=== PATIENT | female | born 1995 | race African-American/Black ===

== ENCOUNTER 2017-10-26 13:39 | Emergency (ER) | payer MEDICAID, OTHER ==
--- NOTE | 2017-10-26 14:29 | ER Document Report ---
ED Medical Screen (RME) - General Chief Complaint: Abdominal Cramping Stated Complaint: ABDOMINAL PAIN Time Seen by Provider: 10/26/17 14:26 Notes: 22-year-old female patient reports she is 9 weeks by history. She had an ultrasound at 7 weeks 1 day in the office. She has pelvic cramping that started about 11 AM this morning without bleeding. No frequency or dysuria. I have greeted and performed a rapid initial assessment of this patient. A comprehensive ED assessment and evaluation of the patient, analysis of test results and completion of the medical decision making process will be conducted by additional ED providers. TRAVEL OUTSIDE OF THE [place] IN LAST 30 DAYS: No - Related Data Allergies/Adverse Reactions: No Known Allergies Allergy (Verified 10/26/17 13:42) Past Medical History - Social History Chew tobacco use (# tins/day): No Frequency of alcohol use: None Drug Abuse: None Renal/ Medical History: Denies: Hx Peritoneal Dialysis - Immunizations Immunizations up to date: Yes Hx Diphtheria, Pertussis, Tetanus Vaccination: Yes - 2007 Physical Exam - Vital signs Vitals: Temp Pulse Resp BP Pulse Ox 98.7 F 82 16 105/86 H 100 10/26/17 13:44 10/26/17 13:44 10/26/17 13:44 10/26/17 13:44 10/26/17 13:44 Course - Vital Signs Vital signs: Temp Pulse Resp BP Pulse Ox 98.7 F 82 16 105/86 H 100 10/26/17 13:44 10/26/17 13:44 10/26/17 13:44 10/26/17 13:44 10/26/17 13:44
[2017-10-26 15:21] LABS: APPEARANCE,URINE SLIGHTLY-CLOUDY; BILIRUBIN,URINE NEGATIVE (NEGATIVE); COLOR,URINE YELLOW; GLUCOSE, URINE NEGATIVE (NEGATIVE); KETONES,URINE NEGATIVE (NEGATIVE); LEUKOCYTE ESTERASE,URINE NEGATIVE (NEGATIVE); NITRITE,URINE POSITIVE (NEGATIVE); PROTEIN,URINE 30 mg/dL (NEGATIVE); URINE SPECIFIC GRAVITY 1.017
[2017-10-26] MEDS ORDERED: PYRIDOXINE HCL 50 MG TABLET PO ONE (15:26)
--- NOTE | 2017-10-26 15:26 | ER Document Report ---
ED GI/ - General Chief Complaint: Abdominal Cramping Stated Complaint: ABDOMINAL PAIN Time Seen by Provider: 10/26/17 14:26 Mode of Arrival: Ambulatory Information source: Patient Notes: 22-year-old female presents to ED for complaint of pelvic cramping she is 9 weeks by history. She states she was seen at [facility] 2 weeks ago and had an ultrasound that showed a viable in the uterus. She states she started cramping about 11:00 this morning no vaginal discharge no bleeding. TRAVEL OUTSIDE OF THE [place] IN LAST 30 DAYS: No - HPI Patient complains to provider of: Pelvic pain, Onset: This morning Timing/Duration: Gradual Quality of pain: Cramping Severity at maximum: Moderate Severity in ED: Moderate Pain Level: 3 Location: Pelvis Vaginal bleeding (Compared to normal period): None Menstrual period history: LMP: 9 weeks : 2 Para: 1 OB ultrasound done: Yes vitamins taken: Yes Associated symptoms: Other - Pelvic cramping Exacerbated by: Movement Relieved by: Denies Similar symptoms previously: Yes Recently seen / treated by doctor: Yes - Related Data Allergies/Adverse Reactions: No Known Allergies Allergy (Verified 10/26/17 13:42) Past Medical History - General Information source: Patient - Social History Smoking Status: Never Smoker Cigarette use (# per day): No Chew tobacco use (# tins/day): No Smoking Education Provided: No Frequency of alcohol use: None Drug Abuse: None Lives with: Family Family History: Reviewed & Not Pertinent Patient has suicidal ideation: No Patient has homicidal ideation: No - Past Medical History Cardiac Medical History: Reports: None Pulmonary Medical History: Reports: None EENT Medical History: Reports: None Neurological Medical History: Reports: None Endocrine Medical History: Reports: None Renal/ Medical History: Reports: None Malignancy Medical History: Reports: None GI Medical History: Reports: None Musculoskeltal Medical History: Reports None Skin Medical History: Reports None Psychiatric Medical History: Reports: None Traumatic Medical History: Reports: None Infectious Medical History: Reports: None Surgical Hx: Negative Past Surgical History: Reports: None - Immunizations Immunizations up to date: Yes Hx Diphtheria, Pertussis, Tetanus Vaccination: Yes - 2007 Review of Systems - Review of Systems Constitutional: Recent illness. denies: Fever EENT: Nose congestion, Nose discharge, Sinus pressure, Sinus discharge Cardiovascular: No symptoms reported Respiratory: Cough Gastrointestinal: No symptoms reported Genitourinary: No symptoms reported Female Genitourinary: No symptoms reported Musculoskeletal: No symptoms reported Skin: No symptoms reported Hematologic/Lymphatic: No symptoms reported Neurological/Psychological: Headaches -: Yes All other systems reviewed and negative Physical Exam - Vital signs Vitals: Temp Pulse Resp BP Pulse Ox 98.7 F 82 16 105/86 H 100 10/26/17 13:44 10/26/17 13:44 10/26/17 13:44 10/26/17 13:44 10/26/17 13:44 Interpretation: Normal - General General appearance: Appears well, Alert - HEENT Head: Normocephalic, Atraumatic Eyes: Normal Pupils: PERRL Ears: Normal External canal: Normal Tympanic membrane: Normal Sinus: Normal Nasal: Normal Mouth/Lips: Normal Mucous membranes: Normal Pharynx: Normal Neck: Normal - Respiratory Respiratory status: No respiratory distress - Pelvic area Chest status: Nontender Breath sounds: Normal Chest palpation: Normal - Cardiovascular Rhythm: Regular Heart sounds: Normal auscultation Murmur: No - Abdominal Inspection: Normal Distension: No distension Bowel sounds: Normal Tenderness: Tender Organomegaly: No organomegaly - Back Back: Normal, Nontender - Extremities General upper extremity: Normal inspection, Nontender, Normal color, Normal ROM , Normal temperature General lower extremity: Normal inspection, Nontender, Normal color, Normal ROM , Normal temperature, Normal weight bearing. No: Agata's sign - Neurological Neuro grossly intact: Yes Cognition: Normal Orientation: AAOx4 Valentino Coma Scale Eye Opening: Spontaneous [place] Coma Scale Verbal: Oriented Valentino Coma Scale Motor: Obeys Commands [place] Coma Scale Total: 15 Speech: Normal Motor strength normal: LUE, RUE, LLE, RLE Sensory: Normal - Psychological Associated symptoms: Normal affect, Normal mood - Skin Skin Temperature: Warm Skin Moisture: Dry Skin Color: Normal Course - Re-evaluation Re-evalutation: 10/26/17 21:30 Patient was diagnosed with a urinary tract infection. She was treated with vitamin B6 for her nausea and Keflex for her UTI. Patient was encouraged to increase her fluids given instructions on vitamin B6 and inessa for her nausea. Patient to follow-up with her primary doctor and her [facility]. - Vital Signs Vital signs: Temp Pulse Resp BP Pulse Ox 98.7 F 66 16 108/54 L 100 10/26/17 15:45 10/26/17 15:45 10/26/17 15:45 10/26/17 15:45 10/26/17 15:45 - Laboratory Laboratory results interpreted by me: 10/26/17 14:16 Urine Protein 30 H Urine Nitrite POSITIVE H Urine Urobilinogen 2.0 H Discharge - Discharge Clinical Impression: Pelvic pain affecting in first trimester, antepartum UTI (urinary tract infection) during Qualifiers: Trimester: first trimester Qualified Code(s): O23.41 - Unspecified infection of urinary tract in , first trimester Condition: Stable Disposition: HOME, SELF-CARE Additional Instructions: URINARY TRACT INFECTION: Your evaluation indicates that you have a urinary tract infection. This is due to germs growing in the bladder. This is a common problem. This infection usually responds quickly to antibiotics. Your antibiotic should be taken exactly as prescribed. Drink plenty of fluids -- three to four quarts a day. Occasionally, a bladder anesthetic will be prescribed to help stop the feeling of urgency until the antibiotic has a chance to clear the infection. This may cause your urine to be dark orange. Certain urine infections require a culture. If the doctor obtained a culture, the results will be back in two days. You should call to see if a change in treatment is needed. A repeat urinalysis after you finish treatment is often recommended. The physician will let you know if further testing is required. Call the doctor if you develop fever, chills, flank pain, inability to urinate, or blood in the urine. CEPHALEXIN: The antibiotic you've been prescribed is a member of the cephalosporin class. This type of antibiotic covers a wide variety of infections, including those of the skin, lungs, and urinary tract. It's useful for staph infections. This antibiotic is slightly similar to the penicillin family. In rare cases , a person who is allergic to penicillin will also be allergic to this medication. If you have had a severe allergic reaction to penicillin, and have not taken this antibiotic since that time, notify your doctor. Antibiotics which cover many germs ("broad spectrum" antibiotics) are more likely to cause diarrhea or "yeast" infections. Women prone to vaginal yeast problems may suffer an attack after taking this antibiotic. In infants, oral thrush (white spots "stuck" on the cheek) or yeast diaper rash may result. See your doctor if these problems occur. Call at once if you develop itching, hives , shortness of breath, or lightheadedness. Acetaminophen Acetaminophen may be taken for pain relief or fever control. It's much safer than aspirin, offering a wider range of "safe" dosages. It is safe during . Some brand names are Tylenol, Panadol, Datril, Anacin 3, Tempra, and Liquiprin. Acetaminophen can be repeated every four hours. The following are maximum recommended dosages: WEIGHT Dose Drops Elixir Chewable( 80mg) (LBS.) drprs=droppers tsp=teaspoon 6 40 mg .4 ml (1/2) 6-11 80 mg .8 ml (full) 1/2 tsp 1 tab 12-16 120 mg 1 1/2 drprs 3/4 tsp 1 1/2 tabs 17-23 160 mg 2 drprs 1 tsp 2 tabs 24-30 240 mg 3 drprs 1 1/2 tsp 3 tabs 30-35 320 mg 2 tsp 4 tabs 36-41 360 mg 2 1/4 tsp 4 1 /2 tabs 42-47 400 mg 2 1/2 tsp 5 tabs 48-53 480 mg 3 tsp 6 tabs 54-59 520 mg 3 1/4 tsp 6 1 /2 tabs 60-64 560 mg 3 1/2 tsp 7 tabs 65-70 600 mg 3 3/4 tsp 7 1 /2 tabs 71-76 640 mg 4 tsp 8 tabs 77-82 720 mg 4 1/2 tsp 9 tabs 83-88 800 mg 5 tsp 10 tabs >89 pounds or adults 650 mg to 900 mg Acetaminophen can be repeated every four hours. Maximum daily dose not to exceed 4000 mg. These maximum recommended dosages are slightly higher than the dosages written on the product container, but these dosages are very safe and well below the toxic dosage for acetaminophen. Vitamin B6 for your nausea during . You can also use inessa ralph or inessa snaps they also help with the nausea. Call your [facility] today or tomorrow and let them know that she do have a UTI and have been treated with Keflex and see if they have any other recommendations for your nausea. FOLLOW-UP CARE: If you have been referred to a physician for follow-up care, call the physician s office for an appointment as you were instructed or within the next two days. If you experience worsening or a significant change in your symptoms, notify the physician immediately or return to the Emergency Department at any time for re-evaluation. Prescriptions: Cephalexin Monohydrate [Keflex 500 mg Capsule] 500 mg PO Q6H 10 Days capsule Forms: Elevated Blood Pressure, Return to Work Referrals: [facility] [Provider Group] - Follow up as needed
[2017-10-26] MEDS ORDERED: CEPHALEXIN 500 MG CAPSULE PO ONE (15:31)
[2017-10-26 15:47] VITALS: BP 108/54
== END 2017-10-26 15:53 | disposition home or self-care (01) ==
LOC: ER 13:39
DX: O23.41 Unspecified infection of urinary tract in pregnancy, first trimester (principal); O26.891 Other specified pregnancy related conditions, first trimester; R10.2 Pelvic and perineal pain; Z3A.09 9 weeks gestation of pregnancy
CPT/HCPCS: 99284; 87086; 87088; 81001; 87186; J3490

== ENCOUNTER 2017-11-29 08:00 | Emergency (ER) | payer OTHER ==
[2017-11-29] MEDS ORDERED: ONDANSETRON HCL INJ/PF 4 MG/2 ML SDV IV ONE (08:26)
[2017-11-29] MEDS ORDERED: NORMAL SALINE 1000 ML 1,000 ML IV ONE (08:26)
--- NOTE | 2017-11-29 08:26 | ER Document Report ---
ED General - General Chief Complaint: Nausea/Vomiting Stated Complaint: NAUSEA, VOMITING Time Seen by Provider: 11/29/17 08:19 Notes: Patient is a 14 week 22-year-old female who presents emergency department with a chief complaint of nausea and vomiting. Patient states that she has been going through [employer] and was previous and likely just but she cannot afford the prescription due to cost. She states that she has been trying Unisom and B6 but has not had much improvement. She states that she has had difficulty tolerating p.o. for the past 4 days. She denies any coffee- ground emesis, bright red blood. She admits normal urine output and normal bowel movements. Otherwise healthy female. Denies any abdominal pain. She denies any significant pelvic cramping, vaginal bleeding or vaginal discharge TRAVEL OUTSIDE OF THE [place] IN LAST 30 DAYS: No - Related Data Allergies/Adverse Reactions: No Known Allergies Allergy (Verified 11/29/17 08:03) Past Medical History - Social History Smoking Status: Never Smoker Family History: Reviewed & Not Pertinent Renal/ Medical History: Denies: Hx Peritoneal Dialysis - Immunizations Immunizations up to date: Yes Hx Diphtheria, Pertussis, Tetanus Vaccination: Yes - 2007 Review of Systems - Review of Systems Constitutional: No symptoms reported Cardiovascular: No symptoms reported Respiratory: No symptoms reported Gastrointestinal: See HPI Genitourinary: See HPI Female Genitourinary: No symptoms reported -: Yes All other systems reviewed and negative Physical Exam - Vital signs Vitals: Temp Pulse Resp BP Pulse Ox 98.2 F 106 H 16 120/77 98 11/29/17 08:02 11/29/17 08:02 11/29/17 08:02 11/29/17 08:02 11/29/17 08:02 - Notes Notes: PHYSICAL EXAM GENERAL: Alert, interacts well. HEAD: Normocephalic, atraumatic. EYES: Pupils equal, round, and reactive to light. Extraocular movements intact. ENT: Oral mucosa moist, tongue midline. NECK: Full range of motion. Supple. Trachea midline. LUNGS: Clear to auscultation bilaterally, no wheezes, rales, or rhonchi. No respiratory distress. HEART: Regular rate and rhythm. No murmurs, gallops, or rubs. ABDOMEN: Soft, nondistended, nontender. No guarding, rebound, or rigidity.. Bowel sounds present in all 4 quadrants. EXTREMITIES: Moves all 4 extremities spontaneously. No edema, radial and dorsalis pedis pulses 2/4 bilaterally. No cyanosis. NEUROLOGICAL: Alert and oriented x4. Normal speech. PSYCH: Normal affect, normal mood. SKIN: Warm, dry, normal turgor. No rashes or lesions noted. Course - Re-evaluation Re-evalutation: 11/29/17 10:24 Patient is a 22-year-old female is hemodynamically stable, no acute distress and afebrile. Patient presents with hyperemesis gravidarum. Patient able to tolerate p.o. fluids after IV Zofran. Patient did receive IV fluids for dehydration. Urinalysis with evidence 80 ketones. Chemistry stable without any evidence of acute renal failure. Patient is afebrile without evidence of tachycardia. No evidence of leukocytosis. Patient stable for discharge home given strict return precautions and stable follow-up with [facility]. - Vital Signs Vital signs: Temp Pulse Resp BP Pulse Ox 98.2 F 106 H 16 120/77 98 11/29/17 08:02 11/29/17 08:02 11/29/17 08:02 11/29/17 08:02 11/29/17 08:02 - Laboratory Result Diagrams: 11/29/17 08:47 11/29/17 08:47 Laboratory results interpreted by me: 11/29/17 11/29/17 11/29/17 08:35 08:47 08:47 WBC 10.6 H RDW 14.3 H Seg Neuts % (Manual) 89 H Lymphocytes % (Manual) 5 L Abs Neuts (Manual) 9.4 H Beta HCG, Quant 65739.00 H Urine Protein 100 H Urine Ketones 80 H Urine Blood SMALL H Urine Urobilinogen 4.0 H Discharge - Discharge Clinical Impression: Hyperemesis, Condition: Good Disposition: HOME, SELF-CARE Additional Instructions: VOMITING: Vomiting (or nausea without vomiting) can be caused by many other different problems. It can mean that something's wrong with the stomach, such as ulcers or inflammation or the intestinal tract, such as appendicitis. But it can also be a symptom of a problem that has nothing to do with the stomach or intestines. Vomiting is common with severe headaches, earaches, tonsillitis, and kidney infections, etc. We see it with pneumonia or heart attacks. Drugs can cause nausea and vomiting. Many abdominal problems cause vomiting; for example, gallstones, kidney stones, pancreatitis, and intestinal obstruction ( blocked bowels). In most cases, curing the vomiting depends on fixing the problem that caused it. For temporary relief, we may use an anti-nausea medicine. For home use, we can prescribe suppositories, chewable pills, pills that dissolve in the mouth, or liquid anti-nausea drugs. If the vomiting seems to be caused by a problem in the stomach, acid-suppressing drugs may be prescribed as well. It's important to avoid dehydration. Sip small amounts of clear liquids ( soft drinks, tea, broth, etc) . Try to take fluids frequently even if you are vomiting to prevent dehydration. Take increasing amounts of fluid and when liquids are being consumed successfully, advance to small amounts of bland food (toast, soups, mashed potatoes, etc.) until you are able to resume a regular diet. Avoid aspirin, tobacco, and alcohol. If the vomiting worsens, if the problem that's making you vomit worsens, or if there's evidence of bleeding in the stomach (such as black, tarry stool, or bloody or black vomit), you should return immediately. Also, return if abdominal pain worsens or becomes localized to one area or you develop high fever. Call your doctor if you aren't improved in 24 hours. INTRAVENOUS (I V) FLUIDS: As part of your care today, you received intravenous (IV) fluids. IV fluids are administered to patients who are dehydrated or to those who have certain chemical (electrolyte) abnormalities that need correcting. ANTINAUSEA MEDICATION: You have been given a medication to suppress nausea and vomiting. This type of medication can be given as a shot, pill, or suppository. It will usually last for many hours. Pills and shots usually last six to eight hours. For the typical illness, only one or two doses of the medication may be necessary. Mild lightheadedness may occur. This type of medicine can cause drowsiness. Do not drive or operate dangerous machinery while under its influence. Do not mix with alcohol. See your doctor at once if you have muscle spasms or tightness, or uncontrollable motions (particularly of the neck, mouth, or jaw). Persistent vomiting or severe lightheadedness should also be evaluated by the physician. FOLLOW-UP CARE: If you have been referred to a physician for follow-up care, call the physician s office for an appointment as you were instructed or within the next two days. If you experience worsening or a significant change in your symptoms, notify the physician immediately or return to the Emergency Department at any time for re-evaluation. Prescriptions: Ondansetron [Zofran Odt 4 mg Tablet] 1 - 2 tab PO Q4H PRN #30 tab.rapdis PRN Reason: For Nausea/Vomiting Forms: Return to Work Referrals: [facility] [Provider Group] - Follow up in 1 week
[2017-11-29 09:00] LABS: HEMATOCRIT 37.1 % (36.0-47.0); HEMOGLOBIN 12.5 g/dL (12.0-15.5); MEAN CORPUSCULAR HEMOGLOBIN 27.4 pg (27.0-33.4); MEAN CORPUSCULAR HGB CONC 33.6 g/dL (32.0-36.0); MEAN CORPUSCULAR VOLUME 82 fl (80-97); PLATELET COUNT 239 10^3/uL (150-450); RED BLOOD COUNT 4.54 10^6/uL (3.72-5.28); RED CELL DISTRIBUTION WIDTH 14.3 % (11.5-14.0); WHITE BLOOD COUNT 10.6 10^3/uL (4.0-10.5)
[2017-11-29 09:00] LABS: APPEARANCE,URINE CLOUDY; BILIRUBIN,URINE NEGATIVE (NEGATIVE); GLUCOSE, URINE NEGATIVE (NEGATIVE); KETONES,URINE 80 mg/dL (NEGATIVE); LEUKOCYTE ESTERASE,URINE NEGATIVE (NEGATIVE); NITRITE,URINE NEGATIVE (NEGATIVE); PROTEIN,URINE 100 mg/dL (NEGATIVE); URINE SPECIFIC GRAVITY 1.031
[2017-11-29 09:01] LABS: COLOR,URINE DARK YELLOW
[2017-11-29 09:14] LABS: ANION GAP 15 (5-19); BLOOD UREA NITROGEN 12 mg/dL (7-20); CALCIUM 9.1 mg/dL (8.4-10.2); CARBON DIOXIDE 23 mmol/L (22-30); CHLORIDE 102 mmol/L (98-107); GLUCOSE 102 mg/dL (75-110); POTASSIUM 3.8 mmol/L (3.6-5.0); SODIUM 140.4 mmol/L (137-145)
[2017-11-29 09:18] LABS: ABSOLUTE LYMPHOCYTES# (MANUAL) 0.5 10^3/uL (0.5-4.7); ABSOLUTE MONOCYTES # (MANUAL) 0.3 10^3/uL (0.1-1.4); ABSOLUTE NEUTROPHILS# (MANUAL) 9.4 10^3/uL (1.7-8.2); BASOPHILS % (MANUAL) 0 % (0-2); EOSINOPHILS % (MANUAL) 3 % (0-6); LYMPHOCYTES % (MANUAL) 5 % (13-45); MONOCYTES % (MANUAL) 3 % (3-13); SEGMENTED NEUTROPHILS % (MAN) 89 % (42-78); TOTAL CELLS COUNTED 100
[2017-11-29 09:19] LABS: ANISOCYTOSIS SLIGHT; TOXIC GRANULATION SLIGHT
[2017-11-29 09:20] LABS: PLATELET COMMENT ADEQUATE
[2017-11-29 10:54] VITALS: BP 98/51
== END 2017-11-29 10:54 | disposition home or self-care (01) ==
LOC: ER 08:00
DX: O21.0 Mild hyperemesis gravidarum (principal); Z3A.14 14 weeks gestation of pregnancy
CPT/HCPCS: 99284; 96361; 96374; 36415; 84702; 85025; 80048; 81001; J2405; J7030

== ENCOUNTER 2017-12-29 11:26 | Emergency (ER) | payer OTHER ==
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
[2017-12-29 14:42] VITALS: BP 111/71
== END 2017-12-29 14:42 | disposition home or self-care (01) ==
LOC: ER 11:26
DX: O9A.211 Injury, poisoning and certain other consequences of external causes complicating pregnancy, first trimester (principal); S40.812A Abrasion of left upper arm, initial encounter; S40.811A Abrasion of right upper arm, initial encounter; Y04.2XXA Assault by strike against or bumped into by another person, initial encounter; Z3A.18 18 weeks gestation of pregnancy
CPT/HCPCS: 76815; 99284

== ENCOUNTER 2018-04-04 14:55 | Outpatient (CLI) | payer OTHER ==
[2018-04-04 15:49] LABS: APPEARANCE,URINE SLIGHTLY-CLOUDY; BILIRUBIN,URINE NEGATIVE (NEGATIVE); COLOR,URINE YELLOW; GLUCOSE, URINE NEGATIVE (NEGATIVE); KETONES,URINE 80 mg/dL (NEGATIVE); LEUKOCYTE ESTERASE,URINE TRACE (NEGATIVE); NITRITE,URINE NEGATIVE (NEGATIVE); PROTEIN,URINE 30 mg/dL (NEGATIVE); URINE SPECIFIC GRAVITY 1.027
--- NOTE | 2018-04-04 15:56 | L&D Progress Notes ---
PROGRESS NOTES Datetime Report Generated by CPN: 04/04/2018 15:56 PROGRESS NOTE Impression: Reactive Non Stress Test Procedures: Sterile Vag Exam Plan: Discharge Plan Other: home Vital Signs : Reviewed; Within Normal Limits Comment: Pt sent over from the office due to complaints of pelvic pressure and discomfort. VE cl/ th/-2. No contractions graphing.Pt had intercourse last night, no FFN done. Discussed round ligament pain vs pelvic pressure being normal, support belt encourged. Will d/c home in stable condition. Pt to f/u in A office as scheduled. Dr Harry is the Attending MD today VAGINAL EXAM Contractions: none MEMBRANES Membranes: Intact FETUS A FHR - Baseline: 125 Monitoring: External US Variability: Moderate 6-25bpm Accelerations: 15X15 Decelerations: None FHR Category: Category I SIGNATURE SIGNATURE: [id number] Assignment: Cosign Signature: with User ID: [email or web address], Addendum/Amendment: Dr Harry to sign note : with User ID: [email or web address], Addendum/Amendment: Dr Harry to sign note
[2018-04-04 16:03] LABS: URINE AMPHETAMINES SCREEN NEGATIVE; URINE BARBITURATES SCREEN NEGATIVE; URINE BENZODIAZEPINES SCREEN NEGATIVE; URINE COCAINE SCREEN NEGATIVE; URINE MARIJUANA (THC) SCREEN NEGATIVE; URINE METHADONE SCREEN NEGATIVE; URINE PHENCYCLIDINE SCREEN NEGATIVE
--- NOTE | 2018-04-04 16:17 | Non Stress Test Report ---
Non Stress Test Datetime Report Generated by CPN: 04/04/2018 16:17 DEMOGRAPHIC EGA NST: 32.0 INDICATION Indication for Study: Other Indication for Study (NST) Other: Round ligament pain MONITORING Monitor Explained: Monitor Explained; Test Explained Time on Monitor: 04/04/2018 15:14 Time off Monitor: 04/04/2018 15:45 NST Duration: 31 NST INTERVENTIONS NST Interventions: None Physician Notified NST: Sandhu CNM BABY A: [id number] BABY A FHR Baseline : 135 Accelerations : 15X15 Decelerations : None Variability : Moderate 6-25bpm NST Review: Meets Criteria for Reactive NST NST Review and Verified By : AKillinger RN NST Results: Reactive NST REPORT Report Trigger: Send Report
== END 2018-04-04 16:23 | disposition home or self-care (01) ==
LOC: LC 14:55
PROVIDERS: ATTEND Obstetrics & Gynecology
PROC: 4A1HXCZ Monitoring of Products of Conception, Cardiac Rate, External Approach (ICD-10-PCS; principal; 2018-04-04)
DX: O26.893 Other specified pregnancy related conditions, third trimester (principal); R10.2 Pelvic and perineal pain; Z3A.32 32 weeks gestation of pregnancy
CPT/HCPCS: 59025; 80307; 81001

== ENCOUNTER 2018-05-03 12:45 | Outpatient (CLI) | payer OTHER ==
[2018-05-03] MEDS ORDERED: ACETAMINOPHEN 325 MG TABLET ONE (13:39)
--- NOTE | 2018-05-03 13:49 | Non Stress Test Report ---
Non Stress Test Datetime Report Generated by CPN: 05/03/2018 13:49 DEMOGRAPHIC EGA NST: 36.1 INDICATION Indication for Study: Ordered by Provider VITAL SIGNS Temperature - NST: 98.9 Pulse - NST: 80 RESP - NST: 17 NBPSYS NST: 98 NBPDIA NST: 57 MONITORING Monitor Explained: Monitor Explained; Test Explained; Patient Verbalized Understanding Time on Monitor: 05/03/2018 13:06 Time off Monitor: 05/03/2018 13:47 NST Duration: 41 NST INTERVENTIONS NST Interventions: PO Hydration; Reposition Patient; Vibroacoustic Stim Physician Notified NST: A Kim CNM BABY A: [id number] BABY A Movement : Present Contraction Frequency : x1 FHR Baseline : 135 Accelerations : 15X15 Decelerations : None Variability : Moderate 6-25bpm NST Review: Meets Criteria for Reactive NST NST Review and Verified By : BORA Watt Results: Reactive NST REPORT Report Trigger: Send Report
[2018-05-03] MEDS ORDERED: ACETAMINOPHEN 325 MG TABLET PO ONE (14:00)
[2018-05-03 14:15] LABS: APPEARANCE,URINE CLEAR; BILIRUBIN,URINE NEGATIVE (NEGATIVE); COLOR,URINE STRAW; GLUCOSE, URINE NEGATIVE (NEGATIVE); KETONES,URINE NEGATIVE (NEGATIVE); LEUKOCYTE ESTERASE,URINE NEGATIVE (NEGATIVE); NITRITE,URINE NEGATIVE (NEGATIVE); PROTEIN,URINE NEGATIVE (NEGATIVE); UROBILINOGEN,URINE NEGATIVE mg/dL (<2.0)
[2018-05-03 14:21] LABS: URINE SPECIFIC GRAVITY 1.008
[2018-05-03 14:45] LABS: URINE AMPHETAMINES SCREEN NEGATIVE; URINE BARBITURATES SCREEN NEGATIVE; URINE BENZODIAZEPINES SCREEN NEGATIVE; URINE COCAINE SCREEN NEGATIVE; URINE MARIJUANA (THC) SCREEN NEGATIVE; URINE METHADONE SCREEN NEGATIVE; URINE PHENCYCLIDINE SCREEN NEGATIVE
== END 2018-05-03 14:37 | disposition home or self-care (01) ==
LOC: LC 12:45
PROVIDERS: ATTEND Obstetrics & Gynecology
PROC: 4A1HXCZ Monitoring of Products of Conception, Cardiac Rate, External Approach (ICD-10-PCS; principal; 2018-05-03)
DX: O26.893 Other specified pregnancy related conditions, third trimester (principal); R10.2 Pelvic and perineal pain; Z3A.36 36 weeks gestation of pregnancy
CPT/HCPCS: 59025; 80307; 81001

== ENCOUNTER 2018-05-31 00:25 | Outpatient (CLI) | payer OTHER ==
[2018-05-31 01:16] LABS: APPEARANCE,URINE SLIGHTLY-CLOUDY; BILIRUBIN,URINE NEGATIVE (NEGATIVE); COLOR,URINE YELLOW; GLUCOSE, URINE NEGATIVE (NEGATIVE); KETONES,URINE NEGATIVE (NEGATIVE); LEUKOCYTE ESTERASE,URINE NEGATIVE (NEGATIVE); NITRITE,URINE NEGATIVE (NEGATIVE); PROTEIN,URINE 30 mg/dL (NEGATIVE); URINE SPECIFIC GRAVITY 1.023
[2018-05-31 01:31] LABS: URINE AMPHETAMINES SCREEN NEGATIVE; URINE BARBITURATES SCREEN NEGATIVE; URINE BENZODIAZEPINES SCREEN NEGATIVE; URINE COCAINE SCREEN NEGATIVE; URINE MARIJUANA (THC) SCREEN NEGATIVE; URINE METHADONE SCREEN NEGATIVE; URINE PHENCYCLIDINE SCREEN NEGATIVE
== END 2018-05-31 02:16 | disposition home or self-care (01) ==
LOC: LC 00:25
PROVIDERS: ATTEND Student in an Organized Health Care Education/Training Program
PROC: 4A1HXCZ Monitoring of Products of Conception, Cardiac Rate, External Approach (ICD-10-PCS; principal; 2018-05-31)
DX: O48.0 Post-term pregnancy (principal); Z3A.40 40 weeks gestation of pregnancy
CPT/HCPCS: 80307; 81005

== ENCOUNTER 2018-05-31 09:51 | Inpatient (IN) | payer OTHER ==
[2018-05-31] MEDS ORDERED: RINGERS SOLUTION,LACTATED 1,000 ML IV PRN (10:20)
[2018-05-31] MEDS ORDERED: OXYTOCIN 10 UNIT/ML VIAL ONE (10:21)
[2018-05-31] MEDS ORDERED: PHENYLEPHRINE HCL INJ/PF 10 MG/1 ML SDV ONE ×2 (10:22→11:05)
[2018-05-31] MEDS ORDERED: MISOPROSTOL 0.2 MG TABLET ONE (10:22)
[2018-05-31] MEDS ORDERED: OXYTOCIN/NORMAL SALINE 20 UNIT/1,000 ML RTUINJ ONE (10:22)
[2018-05-31] MEDS ORDERED: LIDOCAINE 1% INJ-PF (10 MG/ML) 30 ML SDV ONE (10:22)
[2018-05-31] MEDS ORDERED: FENTANYL CITRATE INJ/PF 100 MCG/2 ML AMPUL ONE (10:23)
[2018-05-31] MEDS ORDERED: EPHEDRINE SULFATE INJ 50 MG/1 ML AMPULE ONE (10:23)
[2018-05-31] MEDS ORDERED: FENTANYL/BUPIVACAINE/NS/PF 300 MCG/150 ML RTUINJ EPI ONE (10:24)
[2018-05-31] MEDS ORDERED: BUPIVACAINE HCL 0.5 % INJ/PF 30 ML SDV ONE (10:24)
[2018-05-31] MEDS ORDERED: RINGERS SOLUTION,LACTATED 1,000 ML IV ONE (11:00)
[2018-05-31 11:05] LABS: APPEARANCE,URINE SLIGHTLY-CLOUDY; BILIRUBIN,URINE NEGATIVE (NEGATIVE); COLOR,URINE YELLOW; GLUCOSE, URINE NEGATIVE (NEGATIVE); KETONES,URINE NEGATIVE (NEGATIVE); LEUKOCYTE ESTERASE,URINE NEGATIVE (NEGATIVE); NITRITE,URINE NEGATIVE (NEGATIVE); PROTEIN,URINE NEGATIVE (NEGATIVE); URINE SPECIFIC GRAVITY 1.015; UROBILINOGEN,URINE NEGATIVE mg/dL (<2.0)
[2018-05-31 11:09] LABS: ABSOLUTE BASOPHILS # (AUTO) 0.1 10^3/uL (0.0-0.2); ABSOLUTE LYMPHOCYTES (AUTO) 1.3 10^3/uL (0.5-4.7); ABSOLUTE MONOCYTES (AUTO) 0.7 10^3/uL (0.1-1.4); ABSOLUTE NEUT (AUTO) 11.2 10^3/uL (1.7-8.2); BASOPHILS % (AUTO) 0.4 % (0-2); EOSINOPHILS % (AUTO) 0.3 % (0-6); HEMATOCRIT 29.5 % (36.0-47.0); HEMOGLOBIN 10.1 g/dL (12.0-15.5); LYMPHOCYTES % (AUTO) 9.9 % (13-45); MEAN CORPUSCULAR HEMOGLOBIN 28.3 pg (27.0-33.4); MEAN CORPUSCULAR HGB CONC 34.3 g/dL (32.0-36.0); MEAN CORPUSCULAR VOLUME 83 fl (80-97); MONOCYTES % (AUTO) 5.3 % (3-13); PLATELET COUNT 199 10^3/uL (150-450); RED BLOOD COUNT 3.57 10^6/uL (3.72-5.28); RED CELL DISTRIBUTION WIDTH 15.2 % (11.5-14.0); SEGMENTED NEUTROPHILS % (AUTO) 84.1 % (42-78); TOTAL CELLS COUNTED % (AUTO) 100 %; WHITE BLOOD COUNT 13.3 10^3/uL (4.0-10.5)
[2018-05-31 11:22] LABS: URINE AMPHETAMINES SCREEN NEGATIVE; URINE BARBITURATES SCREEN NEGATIVE; URINE BENZODIAZEPINES SCREEN NEGATIVE; URINE COCAINE SCREEN NEGATIVE; URINE MARIJUANA (THC) SCREEN NEGATIVE; URINE METHADONE SCREEN NEGATIVE; URINE PHENCYCLIDINE SCREEN NEGATIVE
--- NOTE | 2018-05-31 12:09 | Admission Physical ---
Datetime Report Generated by CPN: 05/31/2018 12:09 CURRENT ADMISSION Hx Assessment: The History has been Reviewed and is Current Chief Complaint: Uterine Contractions Indication for Induction: Not Applicable Admit Impression : Term, Intrauterine Admit Plan: Admit to Unit; Initiate Labor Protocol ALLERGIES Medication Allergies: No Medication Allergies: No Known Allergies (05/31/2018) Latex: No Latex Allergies OBSTETRICAL HISTORY EDC: 05/30/2018 00:00 : 2 Para: 1 Term: 1 : 0 SAB: 0 IAB: 0 Ectopic: 0 Livin Cesareans: 0 VBACs: 0 Multiple Births: 0 Gestational Diabetes: No Rh Sensitization: No Incompetent Cervix: No ANKITA: No Infertility: No ART Treatment: No Uterine Anomaly: No IUGR: No Hx Previous C/S: No Macrosomia: No Hx Loss/Stillborn: No PIH: No Hx : No Placenta Previa/Abruption: No Depression/PP Depression: No PTL/PROM: No Post Hemorrhage: No Current Procedures: Ultrasound; NST Obstetrical History Comments: G-1 denies complications viable male 02/2016 G-2 current SEE RECORDS Alcohol: No Marijuana : No Cocaine: No Other Illicit Drugs: No Cigarettes: Never Smoker. [id number] MEDICAL HISTORY Diabetes: No Blood Transfusion: No Pulmonary Disease (Asthma, TB): No Breast Disease: No Hypertension: No Biology Lecturer Surgery: No Heart Disease: No Hosp/Surgery: Yes Autoimmune Disorder: No Anesthetic Complications: No Kidney Disease: No Abnormal Pap Smear: No Neuro/Epilepsy: No Psychiatric Disorders: No Other Medical Diseases: No Hepatitis/Liver Disease: No Significant Family History: No Varicosities/Phlebitis: No Trauma/Violence : No Thyroid Dysfunction: No Medical History Comments: childbirth 2015 INFECTIOUS HISTORY Gonorrhea: No Genital Herpes: No Chlamydia: No Tuberculosis: No Syphilis: No Hepatitis: No HIV/AIDS Exposure: No Rash or Viral Illness: No HPV: No PHYSICAL EXAM General: Normal HEENT: Deferred Neurologic: Normal Thyroid: Deferred Heart: Normal Lungs: Normal Breast: Normal Back: Normal Abdomen: Normal Genitourinary Exam: Normal Extremities: Normal DTRs: Normal Pelvic Type: Adequate Physical Exam Comments: pelvis proven to 7lbs 13 oz Vital Signs: Reviewed; Within Normal Limits VAGINAL EXAM Contraction Comments: none MEMBRANES Membranes: Intact FETUS A EGA: 32.0 Monitoring: External US Presentation: Vertex Admit Comment: 22yo into L_D @ 40w1d with uterine contractions since yesterday that become more painful at around 0400 pt. was discharged at 2cm this AM now 6cm will admit and obtain epidural for pain control. Pt. is A positive, rubella immune, gbs negative PLANS FOR LABOR AND DELIVERY Labor and Delivery: None Pain Management: Epidural Feeding Preference: Breast Benefit of Breast Feed Discussed: Yes Circumcision: Yes INFORMED CONSENT Assignment: Christy Farris MD Signature: with User ID: Krystal : with User ID: Krystal
--- NOTE | 2018-05-31 13:35 | L&D Progress Notes ---
PROGRESS NOTES Datetime Report Generated by CPN: 05/31/2018 13:35 PROGRESS NOTE Impression: Normal Progression of Labor Procedures: Artificial ROM; Sterile Vag Exam Plan: Continue Present Management Informed Consent Obtained: Vaginal Delivery; Risks, Benefits and Alternatives Discussed Vital Signs : Reviewed; Within Normal Limits Comment: S: comfortable with epidural placement, no concerns at this time O: vss, cat I tracing, ctx and cervix as stated A: IUP @ 40w1d in labor-progressing, stable, AROM-large amount of clear fluid P: continue expectant management consider pit augment if contractions continue to become irregular, anticipate delivery, reasses as clinically indicated VAGINAL EXAM Contractions: 2-7 MEMBRANES Membranes: Ruptured FETUS A Monitoring: External US Variability: Moderate 6-25bpm Accelerations: 15X15 FHR Category: Category I SIGNATURE SIGNATURE: 10,[id number];14,[id number];13,[id number] SIGNATURE: 13,[id number];14,[id number];10,[id number] SIGNATURE: 10,[id number];14,[id number] SIGNATURE: 14,[id number];10,[id number] Assignment: Christy Farris MD Signature: with User ID: Krystal : with User ID: Krystal
[2018-05-31] MEDS ORDERED: OXYTOCIN/NORMAL SALINE 20 UNIT/1,000 ML RTUINJ IV PRN ×2 (13:38→16:29)
--- NOTE | 2018-05-31 14:35 | Warning Signs in Babies ---
VOD Warning Signs Datetime Report Generated by [facility]: 05/31/2018 14:35 VOD#608 -Warning Signs in Babies: Viewed with Parent(s)/Family (04/04/2018 15:10:Dora Elliott)
[2018-05-31] MEDS ORDERED: BENZOCAINE/MENTHOL AEROSOL SPRAY 56 ML TOP PRN (16:29)
[2018-05-31] MEDS ORDERED: MAGNESIUM HYDROXIDE SUSP 30 ML UDCUP PO PRN (16:29)
[2018-05-31] MEDS ORDERED: DIPHENHYDRAMINE HCL 25 MG CAPSULE PO PRN (16:29)
[2018-05-31] MEDS ORDERED: MEASLES,MUMPS&RUBELLA VACC/PF 0.5 ML VIAL SUBCUT PRN (16:29)
[2018-05-31] MEDS ORDERED: PSEUDOEPHEDRINE HCL 30 MG TABLET PO PRN (16:29)
[2018-05-31] MEDS ORDERED: ACETAMINOPHEN 325 MG TABLET PO PRN (16:29)
[2018-05-31] MEDS ORDERED: NA PHOS,M-B/NA PHOS,DI-BA (ADULT) 133 ML ENEMA PR PRN (16:29)
[2018-05-31] MEDS ORDERED: PROMETHAZINE HCL INJ 25 MG/1 ML VIAL IV PRN (16:29)
[2018-05-31] MEDS ORDERED: DIPH/PERTUSS(ACELL)/TETANUS VAC/PF 0.5 ML SYR (>=10YO) IM PRN (16:29)
[2018-05-31] MEDS ORDERED: DIBUCAINE 1% OINTMENT 28 GM TP PRN (16:29)
[2018-05-31] MEDS ORDERED: GLYCERIN/WITCH HAZEL LEAF 1 EACH MED..PAD TP PRN (16:29)
[2018-05-31] MEDS ORDERED: PROMETHAZINE HCL 25 MG TABLET PO PRN (16:29)
[2018-05-31] MEDS ORDERED: ACETAMINOPHEN WITH CODEINE #3 TABLET PO PRN (16:29)
[2018-05-31] MEDS ORDERED: PROMETHAZINE HCL 25 MG SUPP.RECT PR PRN (16:29)
[2018-05-31] MEDS ORDERED: IBUPROFEN 800 MG TABLET ONE (16:51)
--- NOTE | 2018-05-31 17:27 | Delivery Summary ---
Del Sum A-C Datetime Report Generated by CPN: 05/31/2018 17:27 DELIVERY PERSONNEL DELIVERY PERSONNEL: [id number] Delivery Doctor:: Scarlett Edwards CNM Nurse Funeral Home Director Certified:: Scarlett Edwards CNM Labor and Delivery Nurse:: ANDREZ Degroot Labor and Delivery Nurse:: Dora Elliott RN Interior Decorator Paperhanging/DIRECTOR OF RECRUITMENT: Batsheva Esp[address] TRAIN DRIVER Additional Personnel: : Sheila Casas RN MATERNAL INFORMATION Delivery Anesthesia: Epidural Medications After Delivery: Pitocin Bolus-Please Comment Meds After Delivery Comment: Pitocin 20 units in 1000 ml nss open for bolus Maternal Complications: None Provider Comments: pt progressed to c/c/1 with urge to push, started pushing and went on to deliver a viable baby boy. Baby with vigorous respiratory effort and cry spontaneously at ; placed on maternal abdomen and cord allowed to stop pulsating then clamped x2 and cut by FOB (3vc noted). Placenta delivered spontaneously intact, vaginal and perineal inspection revealed no lacerations. Fundus firm @ u-1, minimal bleeding. Mother and baby remain skin to skin and stable at this time. LABOR SUMMARY EDC: 05/30/2018 00:00 No. Babies in Womb: 1 Attempted: No Labor Anesthesia: Epidural LABOR INFORMATION Reason for Induction: Not Applicable Onset of Labor: 05/31/2018 10:00 Complete Dilatation: 05/31/2018 15:04 Oxytocin: N/A Group B Beta Strep: Negative Antibiotics # of Doses: na Antibiotics Time of Last Dose: na Steroids Given: None Reason Steroids Not Administered: Not Applicable MEMBRANES Membranes Rupture Method: Artificial Rupture of Membranes: 05/31/2018 13:07 Length of Rupture (hr): 2.17 Amniotic Fluid Color: Clear Amniotic Fluid Amount: Moderate Amniotic Fluid Odor: Normal STAGES OF LABOR Stage 1 hr: 5 Stage 1 min: 4 Stage 2 hr: 0 Stage 2 min: 13 Stage 3 hr: 0 Stage 3 min: 6 Total Time in Labor hr: 5 Total Time in Labor min: 23 VAGINAL DELIVERY Episiotomy: None Laceration #1: None Laceration Extension #1: N/A Other Laceration: n/a Laceration Repair: Not Applicable Sponge Count Correct: N/A Sharps Count Correct: N/A CSECTION DELIVERY Primary Indication: N/A Secondary Indication: N/A CSection Incidence: N/A Labor: N/A Elective: N/A CSection Incision: N/A BABY A INFORMATION Delivery Date/Time: 05/31/2018 15:17 Method of Delivery: Vaginal Born in Route : No : N/A Forceps: N/A Vacuum Extraction: N/A Shoulder Dystocia : No PRESENTATION/POSITION BABY A Presentation: Cephalic Cephalic Presentation: Vertex Vertex Position: Right Occipital Anterior Breech Presentation: N/A PLACENTA INFORMATION BABY A Placenta Delivery Time : 05/31/2018 15:23 Placenta Method of Delivery: Spontaneous Placenta Status: Delivered SCORES BABY A Heart Rate 1 min: >100 bpm Resp Effort 1 min: Good Cry Reflex Irritability 1 min: Cough or Sneeze or Pulls Away Muscle Tone 1 min: Active Motion Color 1 min: Blue/Pale Resuscitation Effort 1 min: Tactile Stimulation SCORE 1 MIN: 8 Heart Rate 5 min: >100 bpm Resp Effort 5 min: Good Cry Reflex Irritability 5 min: Cough or Sneeze or Pulls Away Muscle Tone 5 min: Active Motion Color 5 min: Body [place], Extremities Blue Resuscitation Effort 5 min: N/A SCORE 5 MIN: 9 Resuscitation Effort 10 min: N/A INFANT INFORMATION BABY A Gestational Age at Delivery: 40.1 Gestational Status: Full Term- 39- 40.6 Weeks Outcome : Liveborn Infant Condition : Stable Sex: Male IDENTIFICATION BABY A Infant Verification Date/Time: 05/31/2018 15:37 ID Band Number: [id number] Mother's Name Verified: Yes RN Verifying Infant: SVance, RN Additional Verifying Personnel: SCa, RN WEIGHT/LENGTH BABY A Birthweight (gm): 3430 Weight (lb): 7 Weight (oz): 9 Length (in): 20.00 Length (cm): 50.80 CORD INFORMATION BABY A No. Cord Vessels: 3 Nuchal Cord : N/A Cord Blood Taken: Yes-For Storage (Mom's Blood type +) Infant Suction: None ASSESSMENT BABY A Complications: None Physical Findings at Delivery: Within Normal Limits Infant Respirations: Appears Normal Skin to Skin: Yes Skin to Skin Time (min): 45 Experimental Mechanic Outboard Motors/ALS Called : No Care By: B Roulund, J Fuad BABY B INFORMATION : N/A SIGNATURES Assignment: Christy Farris MD Signature: with User ID: Krystal : with User ID: Krystal
[2018-05-31] MEDS: DOCUSATE SODIUM 100 MG CAPSULE PO SCH (18:28)
[2018-05-31] MEDS: FERROUS SULFATE 325 MG TABLET PO SCH (18:28)
[2018-05-31] MEDS: IBUPROFEN 800 MG TABLET PO SCH (21:28)
[2018-05-31] MEDS: FAMOTIDINE 20 MG TABLET PO SCH (21:28)
[2018-06-01] MEDS: IBUPROFEN 800 MG TABLET PO SCH ×3 (05:00→21:43)
[2018-06-01 07:35] LABS: MEAN CORPUSCULAR HEMOGLOBIN 27.8 pg (27.0-33.4); MEAN CORPUSCULAR HGB CONC 33.5 g/dL (32.0-36.0); MEAN CORPUSCULAR VOLUME 83 fl (80-97); PLATELET COUNT 182 10^3/uL (150-450); RED BLOOD COUNT 3.25 10^6/uL (3.72-5.28); WHITE BLOOD COUNT 12.6 10^3/uL (4.0-10.5)
[2018-06-01] MEDS: DOCUSATE SODIUM 100 MG CAPSULE PO SCH (09:51)
[2018-06-01] MEDS: FAMOTIDINE 20 MG TABLET PO SCH ×2 (09:51→21:41)
[2018-06-01] MEDS: ACETAMINOPHEN WITH CODEINE #3 TABLET PO PRN (09:51)
[2018-06-01] MEDS: FERROUS SULFATE 325 MG TABLET PO SCH (09:51)
[2018-06-01] MEDS ORDERED: PRENATAL VITAMIN W DHA CAPSULE PO SCH (10:00)
[2018-06-01] MEDS ORDERED: SENNOSIDES/DOCUSATE 8.6-50 MG 1 EACH TABLET PO SCH (10:00)
--- NOTE | 2018-06-01 11:47 | PDOC PROGRESS REPORT ---
Subjective-OB Progress Note for:: 06/01/18 Subjective: reports bleeding slowing, pain controlled with current meds, currently in pain, RN notified Physical Exam (OB) Vital Signs: Temp Pulse Resp BP Pulse Ox 98.0 F 75 20 115/67 100 06/01/18 09:01 06/01/18 09:01 06/01/18 09:01 06/01/18 09:01 06/01/18 09:01 Intake & Output 05/31/18 06/01/18 06/02/18 06:59 06:59 06:59 Intake Total 1000 Balance 1000 Weight 88.2 kg - Abdomen Description: Soft, Round Hernia Present: No Fundal Description: Firm, Midline Fundal Height: u/u - u/2 - Abdominal Distension: No distension Tenderness: Nontender - Extremities Lower extremities: Agata's sign - neg Calf: Normal, Nontender Objective-Diagnostic Laboratory: 06/01/18 07:06 06/01/18 07:06 WBC 12.6 H RBC 3.25 L Hgb 9.0 L Hct 27.0 L MCV 83 MCH 27.8 MCHC 33.5 RDW 15.0 H Plt Count 182 Assessment and Plan(PN) - Assessment and Plan (1) Vaginal delivery Is this a current diagnosis for this admission?: Yes - Time Spent with Patient Time with patient: Less than 15 minutes Medications reviewed and adjusted accordingly: Yes - Disposition Anticipated Discharge: Home Within: within 24 hours
[2018-06-02] MEDS: IBUPROFEN 800 MG TABLET PO SCH ×2 (05:25→14:06)
[2018-06-02 08:13] VITALS: BP 98/50
[2018-06-02] MEDS: DOCUSATE SODIUM 100 MG CAPSULE PO SCH (08:48)
[2018-06-02] MEDS: FERROUS SULFATE 325 MG TABLET PO SCH (08:48)
[2018-06-02] MEDS: ACETAMINOPHEN WITH CODEINE #3 TABLET PO PRN (08:49)
--- NOTE | 2018-06-02 12:41 | PDOC PROGRESS REPORT ---
Subjective-OB Progress Note for:: 06/02/18 Subjective: Ready to go home. Physical Exam (OB) Vital Signs: Temp Pulse Resp BP Pulse Ox 97.8 F 72 16 98/50 L 100 06/02/18 07:25 06/02/18 07:25 06/02/18 07:25 06/02/18 07:25 06/02/18 07:25 Intake & Output 06/01/18 06/02/18 06/03/18 06:59 06:59 06:59 Intake Total 1000 Balance 1000 Weight 88.2 kg - PIH/Pre-Eclampsia DTR's: 1 + Clonus: Negative Headache: Absent Epigastric Pain: No Visual Changes: No - Lochia Lochia Amount: Scant < 10 ml Lochia Color: Rubra/Red - Abdomen Description: Soft, Round Hernia Present: No Bowel Sounds: Normoactive Flatus Presence: Present Stool: No Fundal Description: Firm, Midline Fundal Height: u/u - u/2 Objective-Diagnostic Laboratory: 06/01/18 07:06 Assessment and Plan(PN) - Time Spent with Patient Medications reviewed and adjusted accordingly: Yes - Disposition Anticipated Discharge: Home
--- NOTE | 2018-06-02 12:43 | PDOC DISCHARGE SUMMARY ---
Final Diagnosis Discharge Date: 06/02/18 - Final Diagnosis (1) Anemia Is this a current diagnosis for this admission?: Yes (2) Delivery normal Is this a current diagnosis for this admission?: Yes (3) Is this a current diagnosis for this admission?: Yes (4) Vaginal delivery Is this a current diagnosis for this admission?: Yes Discharge Data - Discharge Medication Prescriptions: Ferrous Sulfate [Feosol 325 mg Tablet] 325 mg PO BID #60 tablet Home Medications: Sertraline HCl [Zoloft 50 mg Tablet] 1 tab PO DAILY 05/03/18 Ferrous Sulfate [Feosol 325 mg Tablet] 325 mg PO BID #60 tablet 06/02/18 Vit/Dha [ Multi + Dha Capsule] 1 cap PO DAILY capsule Gestational Age: 40.1 wks Reason(s) for Admission: Onset of Labor Procedures: Ultrasound Intrapartum Procedure(s): Spontaneous Vaginal Delivery - [place] Data Baby 1 Male at 1 minute: 8 at 5 minutes: 9 Weight: 3.43 kg Home with Mother: Yes Complications: No - Diagnosis Test Laboratory: Temp Pulse Resp BP Pulse Ox 97.8 F 72 16 98/50 L 100 06/02/18 07:25 06/02/18 07:25 06/02/18 07:25 06/02/18 07:25 06/02/18 07:25 05/31/18 05/31/18 06/01/18 09:56 10:50 07:06 RBC 3.57 L 3.25 L Hgb 10.1 L 9.0 L Hct 29.5 L 27.0 L Urine Opiates Screen NEGATIVE - Discharge information/Instructions Discharge Activity: Activity As Tolerated, Balance Activity w/Rest, Pelvic Rest , Slowly Increase Activity, No tub bath Discharge Diet: Regular Disposition: HOME, SELF-CARE Follow up with: [facility] in: 4, Weeks
== END 2018-06-02 14:19 | disposition home or self-care (01) | DRG 807 ==
LOC: LC 09:51 → LR 10:10 → 2S 17:36
PROVIDERS: ADMIT Obstetrics & Gynecology; ATTEND Obstetrics & Gynecology
PROC: 10E0XZZ Delivery of Products of Conception, External Approach (ICD-10-PCS; principal; 2018-05-31)
PROC: 10907ZC Drainage of Amniotic Fluid, Therapeutic from Products of Conception, Via Natural or Artificial Opening (ICD-10-PCS; 2018-05-31)
PROC: 4A1HXCZ Monitoring of Products of Conception, Cardiac Rate, External Approach (ICD-10-PCS; 2018-05-31)
DX: O99.02 Anemia complicating childbirth (principal); Z37.0 Single live birth; D64.9 Anemia, unspecified; Z3A.40 40 weeks gestation of pregnancy
CPT/HCPCS: 36415; 80307; 81005; 85025; 85027; 86592; 86850; 86900; 86901; 88307; 94760; J2370; J2590; J3010; J3490

== ENCOUNTER 2019-07-10 16:22 | Outpatient (CLI) | payer OTHER ==
[2019-07-10 18:32] LABS: APPEARANCE,URINE SLIGHTLY-CLOUDY; BILIRUBIN,URINE NEGATIVE (NEGATIVE); COLOR,URINE YELLOW; GLUCOSE, URINE NEGATIVE (NEGATIVE); KETONES,URINE 80 mg/dL (NEGATIVE); LEUKOCYTE ESTERASE,URINE TRACE (NEGATIVE); NITRITE,URINE NEGATIVE (NEGATIVE); PROTEIN,URINE 100 mg/dL (NEGATIVE); URINE SPECIFIC GRAVITY 1.025
[2019-07-10 18:45] LABS: URINE AMPHETAMINES SCREEN NEGATIVE; URINE BARBITURATES SCREEN NEGATIVE; URINE BENZODIAZEPINES SCREEN NEGATIVE; URINE COCAINE SCREEN NEGATIVE; URINE MARIJUANA (THC) SCREEN NEGATIVE; URINE METHADONE SCREEN NEGATIVE; URINE PHENCYCLIDINE SCREEN NEGATIVE
== END 2019-07-10 19:16 | disposition home or self-care (01) ==
LOC: EDSTATUS 17:31 → LC 18:06
PROVIDERS: ATTEND Obstetrics & Gynecology Gynecology
PROC: 4A1HXCZ Monitoring of Products of Conception, Cardiac Rate, External Approach (ICD-10-PCS; principal; 2019-07-10)
DX: O9A.312 Physical abuse complicating pregnancy, second trimester (principal); O26.892 Other specified pregnancy related conditions, second trimester; M54.9 Dorsalgia, unspecified; Y07.03 Male partner, perpetrator of maltreatment and neglect; Z3A.27 27 weeks gestation of pregnancy
CPT/HCPCS: 80307; 81001

== ENCOUNTER 2019-10-01 13:06 | Outpatient (CLI) | payer MEDICAID ==
[2019-10-01 13:54] LABS: APPEARANCE,URINE SLIGHTLY-CLOUDY; BILIRUBIN,URINE NEGATIVE (NEGATIVE); COLOR,URINE YELLOW; GLUCOSE, URINE NEGATIVE (NEGATIVE); KETONES,URINE NEGATIVE (NEGATIVE); LEUKOCYTE ESTERASE,URINE NEGATIVE (NEGATIVE); NITRITE,URINE NEGATIVE (NEGATIVE); PROTEIN,URINE 30 mg/dL (NEGATIVE); URINE SPECIFIC GRAVITY 1.026; UROBILINOGEN,URINE NEGATIVE mg/dL (<2.0)
[2019-10-01 14:09] LABS: URINE AMPHETAMINES SCREEN NEGATIVE; URINE BARBITURATES SCREEN NEGATIVE; URINE BENZODIAZEPINES SCREEN NEGATIVE; URINE COCAINE SCREEN NEGATIVE; URINE MARIJUANA (THC) SCREEN NEGATIVE; URINE METHADONE SCREEN NEGATIVE; URINE PHENCYCLIDINE SCREEN NEGATIVE
--- NOTE | 2019-10-01 14:35 | Non Stress Test Report ---
Non Stress Test Datetime Report Generated by CPN: 10/01/2019 14:35 DEMOGRAPHIC EGA NST: 39.1 INDICATION Indication for Study (NST) Other: possible SROM MONITORING Monitor Explained: Monitor Explained; Test Explained; Patient Verbalized Understanding Time on Monitor: 10/01/2019 13:27 Time off Monitor: 10/01/2019 13:52 NST Duration: 25 NST INTERVENTIONS NST Interventions: None Physician Notified NST: Dr Bell BABY A: [id number] BABY A Movement : Present Contraction Frequency : irregular FHR Baseline : 135 Accelerations : 15X15 Decelerations : None Variability : Moderate 6-25bpm NST Review: Meets Criteria for Reactive NST NST Review and Verified By : Stewart Herbie RN NST Results: Reactive NST COMMENTS NST Comments: charge nurse on unit reviewing fht strip NST REPORT Report Trigger: Send Report
== END 2019-10-01 14:26 | disposition home or self-care (01) ==
LOC: LC 13:06
PROVIDERS: ATTEND Obstetrics & Gynecology
PROC: 4A1HXCZ Monitoring of Products of Conception, Cardiac Rate, External Approach (ICD-10-PCS; principal; 2019-10-01)
DX: O47.1 False labor at or after 37 completed weeks of gestation (principal); Z3A.39 39 weeks gestation of pregnancy
CPT/HCPCS: 59025; 80307; 81005; 84112

== ENCOUNTER 2019-10-07 17:13 | Inpatient (IN) | payer MEDICAID ==
[2019-10-07 17:36] LABS: APPEARANCE,URINE SLIGHTLY-CLOUDY; BILIRUBIN,URINE NEGATIVE (NEGATIVE); COLOR,URINE YELLOW; GLUCOSE, URINE NEGATIVE (NEGATIVE); KETONES,URINE NEGATIVE (NEGATIVE); LEUKOCYTE ESTERASE,URINE SMALL (NEGATIVE); NITRITE,URINE NEGATIVE (NEGATIVE); PROTEIN,URINE NEGATIVE (NEGATIVE); URINE SPECIFIC GRAVITY 1.015; UROBILINOGEN,URINE NEGATIVE mg/dL (<2.0)
[2019-10-07] MEDS ORDERED: RINGERS SOLUTION,LACTATED 1,000 ML IV PRN (17:52)
[2019-10-07] MEDS ORDERED: RINGERS SOLUTION,LACTATED 1,000 ML IV ONE (17:52)
[2019-10-07] MEDS ORDERED: PENICILLIN G POTASSIUM 5,000,000 UNIT in DEXTROSE 5%-WATER 100 ML IV ONE (17:52)
[2019-10-07 17:54] LABS: URINE AMPHETAMINES SCREEN NEGATIVE; URINE BARBITURATES SCREEN NEGATIVE; URINE BENZODIAZEPINES SCREEN NEGATIVE; URINE COCAINE SCREEN NEGATIVE; URINE MARIJUANA (THC) SCREEN NEGATIVE; URINE METHADONE SCREEN NEGATIVE; URINE PHENCYCLIDINE SCREEN NEGATIVE
[2019-10-07] MEDS ORDERED: OXYTOCIN 10 UNIT/ML VIAL ONE (17:55)
[2019-10-07] MEDS ORDERED: MISOPROSTOL 0.2 MG TABLET ONE (17:55)
[2019-10-07] MEDS ORDERED: PENICILLIN G-K 5 MILLION UNIT VIAL ONE ×2 (17:55→21:47)
[2019-10-07] MEDS ORDERED: LIDOCAINE 1% INJ-PF (10 MG/ML) 30 ML SDV ONE (17:55)
[2019-10-07] MEDS ORDERED: OXYTOCIN/NORMAL SALINE 20 UNIT/1,000 ML RTUINJ ONE (17:55)
[2019-10-07 18:30] LABS: HEMATOCRIT 31.9 % (36.0-47.0); HEMOGLOBIN 10.4 g/dL (12.0-15.5); MEAN CORPUSCULAR HEMOGLOBIN 26.7 pg (27.0-33.4); MEAN CORPUSCULAR HGB CONC 32.7 g/dL (32.0-36.0); MEAN CORPUSCULAR VOLUME 82 fl (80-97); PLATELET COUNT 222 10^3/uL (150-450); RED BLOOD COUNT 3.91 10^6/uL (3.72-5.28); RED CELL DISTRIBUTION WIDTH 15.4 % (11.5-14.0); WHITE BLOOD COUNT 11.4 10^3/uL (4.0-10.5)
[2019-10-07] MEDS ORDERED: OXYTOCIN/NORMAL SALINE 20 UNIT/1,000 ML RTUINJ IV PRN ×2 (18:50→19:59)
[2019-10-07] MEDS: PENICILLIN G POTASSIUM 2,500,000 UNIT in DEXTROSE 5%-WATER 50 ML IV SCH (21:57)
[2019-10-08] MEDS ORDERED: FENTANYL/BUPIVACAINE/NS/PF 300 MCG/150 ML RTUINJ EPI ONE (00:30)
[2019-10-08] MEDS ORDERED: BUPIVACAINE HCL 0.25 % INJ/PF (2.5 MG/1 ML) 30 ML VIAL ONE ×2 (00:30→04:17)
[2019-10-08] MEDS ORDERED: EPHEDRINE SULFATE INJ 50 MG/1 ML AMPULE ONE (00:30)
[2019-10-08] MEDS ORDERED: FENTANYL CITRATE INJ/PF 100 MCG/2 ML AMPUL ONE (00:31)
[2019-10-08] MEDS ORDERED: ONDANSETRON HCL INJ/PF 4 MG/2 ML SDV ONE (01:38)
[2019-10-08] MEDS ORDERED: PENICILLIN G-K 5 MILLION UNIT VIAL ONE ×2 (02:03→07:12)
[2019-10-08] MEDS: PENICILLIN G POTASSIUM 2,500,000 UNIT in DEXTROSE 5%-WATER 50 ML IV SCH ×2 (02:10→07:16)
--- NOTE | 2019-10-08 03:51 | Admission Physical ---
Datetime Report Generated by CPN: 10/08/2019 03:50 CURRENT ADMISSION Chief Complaint: Uterine Contractions Chief Complaint Other: Here for labor rule out but during visit deceleration noted on NST. It was less than 1 minute. She is 40 wks today . Recommend IOL . SHe has hx of 2 prior . Cervix 1-2 cm dilated. GBS positive Indication for Induction: Indicated by Testing Admit Impression : Term, Intrauterine ; Induction of Labor Admit Plan: Admit to Unit; Initiate Labor Protocol; Initiate Labor Induction Protocol ALLERGIES Medication Allergies: No Medication Allergies: No Known Allergies (05/31/2018) Latex: No Latex Allergies Food Allergies: no Environmental Allergies: no OBSTETRICAL HISTORY EDC: 10/07/2019 00:00 : 3 Para: 2 Term: 2 : 0 SAB: 0 IAB: 0 Ectopic: 0 Livin Cesareans: 0 VBACs: 0 Multiple Births: 0 Gestational Diabetes: No Rh Sensitization: No Incompetent Cervix: No ANKITA: No Infertility: No ART Treatment: No Uterine Anomaly: No IUGR: No Hx Previous C/S: No Macrosomia: No Hx Loss/Stillborn: No PIH: No Hx : No Placenta Previa/Abruption: No Depression/PP Depression: Yes PTL/PROM: No Post Hemorrhage: No Current Procedures: Ultrasound Obstetrical History Comments: G1- NVSD G2- 2017 G3- current SEE RECORDS Alcohol: No Marijuana : No Cocaine: No Other Illicit Drugs: No Cigarettes: Never Smoker. [id number] MEDICAL HISTORY Diabetes: No Blood Transfusion: No Pulmonary Disease (Asthma, TB): No Breast Disease: No Hypertension: No Pediatrics Teacher Surgery: No Heart Disease: No Hosp/Surgery: Yes Autoimmune Disorder: No Anesthetic Complications: No Kidney Disease: No Abnormal Pap Smear: Yes Neuro/Epilepsy: No Psychiatric Disorders: No Other Medical Diseases: No Hepatitis/Liver Disease: No Significant Family History: No Varicosities/Phlebitis: No Trauma/Violence : No Thyroid Dysfunction: No Medical History Comments: pp depression after last deliver per records (pt denies),childbirth, ASCUS pap INFECTIOUS HISTORY Gonorrhea: No Genital Herpes: No Chlamydia: No Tuberculosis: No Syphilis: No Hepatitis: No HIV/AIDS Exposure: No Rash or Viral Illness: No HPV: No Infectious History Comments: trich 2016 PHYSICAL EXAM General: Normal HEENT: Normal Neurologic: Normal Thyroid: Normal Heart: Normal Lungs: Normal Breast: Normal Back: Normal Abdomen: Normal Genitourinary Exam: Normal Extremities: Normal DTRs: Normal Pelvic Type: Adequate Vital Signs: Reviewed; Within Normal Limits VAGINAL EXAM Dilatation: 1 Effacement: 50 Station: -2 Contraction Comments: contractions q 5-10 minutes MEMBRANES Pooling: Negative Membranes: Intact FETUS A EGA: 40.0 Monitoring: External US FHR- Baseline: 125 Variability: Moderate 6-25bpm Accelerations: 15X15 FHR Category: Category I Presentation: Vertex Admit Comment: at 40 wks EGA for IOL d/t decel in triage at term -Admit to LDR -CEFM and toco -NPO and IVFs: LR at 125 cc/hr -GBS positive: PCN IV -hx 2 prior SVDs. -Anticipate . -desires epidural when needed for pain management PLANS FOR LABOR AND DELIVERY Labor and Delivery: None Pain Management: Epidural Feeding Preference: Breast Benefit of Breast Feed Discussed: Yes Circumcision: N/A INFORMED CONSENT Informed Consent Obtained: Vaginal Delivery; Section Delivery; Risks, Benefits and Alternatives Discussed Signature: with User ID: Fernando : with User ID: Fernando
[2019-10-08] MEDS ORDERED: PROMETHAZINE HCL 25 MG SUPP.RECT PR PRN (10:15)
[2019-10-08] MEDS ORDERED: DIPH/PERTUSS(ACELL)/TETANUS VAC/PF 0.5 ML SYR (>=10YO) IM PRN (10:15)
[2019-10-08] MEDS ORDERED: DIBUCAINE 1% OINTMENT 28 GM TP PRN (10:15)
[2019-10-08] MEDS ORDERED: MEASLES,MUMPS&RUBELLA VACC/PF 0.5 ML VIAL SUBCUT PRN (10:15)
[2019-10-08] MEDS ORDERED: ACETAMINOPHEN 650 MG SUPP.RECT PR PRN (10:15)
[2019-10-08] MEDS ORDERED: PROMETHAZINE HCL 25 MG TABLET PO PRN (10:15)
[2019-10-08] MEDS ORDERED: NA PHOS,M-B/NA PHOS,DI-BA (ADULT) 133 ML ENEMA PR PRN (10:15)
[2019-10-08] MEDS ORDERED: MAGNESIUM HYDROXIDE SUSP 30 ML UDCUP PO PRN (10:15)
[2019-10-08] MEDS ORDERED: GLYCERIN/WITCH HAZEL LEAF 1 EACH MED..WIPE TP PRN (10:15)
[2019-10-08] MEDS ORDERED: OXYTOCIN/NORMAL SALINE 20 UNIT/1,000 ML RTUINJ IV PRN (10:15)
[2019-10-08] MEDS ORDERED: DIPHENHYDRAMINE HCL 25 MG CAPSULE PO PRN (10:15)
[2019-10-08] MEDS ORDERED: BENZOCAINE/MENTHOL AEROSOL SPRAY 56 ML TOP PRN (10:15)
[2019-10-08] MEDS ORDERED: PSEUDOEPHEDRINE HCL 30 MG TABLET PO PRN (10:15)
[2019-10-08] MEDS ORDERED: ZOLPIDEM TARTRATE 5 MG TABLET PO PRN (10:15)
[2019-10-08] MEDS ORDERED: PROMETHAZINE HCL INJ 25 MG/1 ML VIAL IV PRN (10:15)
--- NOTE | 2019-10-08 10:45 | Warning Signs in Babies ---
VOD Warning Signs Datetime Report Generated by [facility]: 10/08/2019 10:45 VOD#608 -Warning Signs in Babies: Viewed with Parent(s)/Family (07/10/2019 17:51:Chance Rosenthal RN)
--- NOTE | 2019-10-08 10:46 | Warning Signs in Babies ---
VOD Warning Signs Datetime Report Generated by [facility]: 10/08/2019 10:46 VOD#608 -Warning Signs in Babies: Viewed with Parent(s)/Family (10/08/2019 10:45:Chance Rosenthal RN)
[2019-10-08] MEDS ORDERED: IBUPROFEN 800 MG TABLET ONE (13:57)
[2019-10-08] MEDS: IBUPROFEN 800 MG TABLET PO SCH ×2 (14:03→21:52)
--- NOTE | 2019-10-08 14:34 | Delivery Summary ---
Del Sum A-C Datetime Report Generated by CPN: 10/08/2019 14:34 DELIVERY PERSONNEL DELIVERY PERSONNEL: [id number] Delivery Doctor:: Francisco Bell MD Labor and Delivery Nurse:: Chance Rosenthal RNprogram advocate Nurse:: Carmen Davila RN Telephone Installer/BLUEPRINT CUTTER: Jessica Pinzon, SHOP LABORER MATERNAL INFORMATION Delivery Anesthesia: Epidural Medications After Delivery: Pitocin Bolus-Please Comment; Pitocin Drip 20 Units/1000ml NSS Delivery QBL: 200 Maternal Complications: None Provider Comments: Called to patients room as she was C/C/+3 Pushed once and delivered over an intact perineum. Viable female infant delivered in vertex presentation. Cord clamping delayed for 30 seconds as infant was vigorous. Infant placed skin to skin. Both mother and infant stable. LABOR SUMMARY EDC: 10/07/2019 00:00 No. Babies in Womb: 1 Attempted: No Labor Anesthesia: Epidural LABOR INFORMATION Reason for Induction: Other Reason for Induction- Other: indications Onset of Labor: 10/08/2019 01:42 Complete Dilatation: 10/08/2019 09:52 Oxytocin: Induction (Annotations: Data stored by N on behalf of user) Group B Beta Strep: Positive Antibiotics # of Doses: 4 Antibiotics Time of Last Dose: 730 Name of Antibiotic Given: PCN Steroids Given: None Reason Steroids Not Administered: Not Applicable MEMBRANES Membranes Rupture Method: Artificial Rupture of Membranes: 10/08/2019 01:42 Length of Rupture (hr): 8.35 Amniotic Fluid Color: Clear Amniotic Fluid Amount: Scant Amniotic Fluid Odor: Normal STAGES OF LABOR Stage 1 hr: 8 Stage 1 min: 10 Stage 2 hr: 0 Stage 2 min: 11 Stage 3 hr: 0 Stage 3 min: 5 Total Time in Labor hr: 8 Total Time in Labor min: 26 VAGINAL DELIVERY Episiotomy: None Laceration #1: None Laceration Extension #1: N/A Laceration Repair: Not Applicable Sponge Count Correct: Yes Sharps Count Correct: Yes CSECTION DELIVERY Primary Indication: N/A Secondary Indication: N/A CSection Incidence: N/A Labor: N/A Elective: N/A CSection Incision: N/A BABY A INFORMATION Infant Delivery Date/Time: 10/08/2019 10:03 Method of Delivery: Vaginal Nurse Controlled Delivery: No Born in Route : No : N/A Forceps: N/A Vacuum Extraction: N/A Shoulder Dystocia : No PRESENTATION/POSITION BABY A Presentation: Cephalic Cephalic Presentation: Vertex Vertex Position: Right Occipital Anterior Breech Presentation: N/A PLACENTA INFORMATION BABY A Placenta Delivery Time : 10/08/2019 10:08 Placenta Method of Delivery: Spontaneous Placenta Status: Delivered SCORES BABY A Heart Rate 1 min: >100 bpm Resp Effort 1 min: Good Cry Reflex Irritability 1 min: Cough or Sneeze or Pulls Away Muscle Tone 1 min: Active Motion Color 1 min: Body [place], Extremities Blue Resuscitation Effort 1 min: Tactile Stimulation SCORE 1 MIN: 9 Heart Rate 5 min: >100 bpm Resp Effort 5 min: Good Cry Reflex Irritability 5 min: Cough or Sneeze or Pulls Away Muscle Tone 5 min: Active Motion Color 5 min: Body [place], Extremities Blue Resuscitation Effort 5 min: N/A SCORE 5 MIN: 9 INFORMATION BABY A Gestational Age at Delivery: 40.1 Gestational Status: Full Term- 39- 40.6 Weeks Infant Outcome : Liveborn Infant Condition : Stable Sex: Female IDENTIFICATION BABY A Verification Date/Time: 10/08/2019 10:15 ID Band Number: [id number] Mother's Name Verified: Yes Infant RN Verifying : BBaidy,RN Additional Verifying Personnel: TMartin,RN WEIGHT/LENGTH BABY A Infant Birthweight (gm): 3170 Infant Weight (lb): 7 Infant Weight (oz): 0 Infant Length (in): 19.00 Infant Length (cm): 48.26 CORD INFORMATION BABY A No. Cord Vessels: 3 Nuchal Cord : N/A Cord Blood Taken: Yes-For Storage (Mom's Blood type +) Infant Suction: Mouth ASSESSMENT BABY A Complications: None Physical Findings at Delivery: Within Normal Limits Infant Respirations: Appears Normal Skin to Skin: Yes Skin to Skin Time (min): 60 Rn Telephone Triage/ALS Called : No Care By: B Baidy RN Transferred To: Remains with Mother BABY B INFORMATION : N/A SIGNATURES Signature: with User ID: Fernando : with User ID: Fernando
[2019-10-08] MEDS: FERROUS SULFATE 325 MG TABLET PO SCH (17:50)
[2019-10-08] MEDS: DOCUSATE SODIUM 100 MG CAPSULE PO SCH (17:50)
[2019-10-08] MEDS: ACETAMINOPHEN WITH CODEINE #3 TABLET PO PRN ×3 (17:53→21:54)
[2019-10-08] MEDS: FAMOTIDINE 20 MG TABLET PO SCH (22:07)
[2019-10-09] MEDS: IBUPROFEN 800 MG TABLET PO SCH ×3 (05:39→21:18)
[2019-10-09] MEDS: ACETAMINOPHEN WITH CODEINE #3 TABLET PO PRN ×3 (05:39→17:44)
[2019-10-09 09:05] LABS: HEMATOCRIT 28.9 % (36.0-47.0); HEMOGLOBIN 9.6 g/dL (12.0-15.5); MEAN CORPUSCULAR HEMOGLOBIN 27.2 pg (27.0-33.4); MEAN CORPUSCULAR HGB CONC 33.1 g/dL (32.0-36.0); MEAN CORPUSCULAR VOLUME 82 fl (80-97); PLATELET COUNT 190 10^3/uL (150-450); RED BLOOD COUNT 3.52 10^6/uL (3.72-5.28); RED CELL DISTRIBUTION WIDTH 15.5 % (11.5-14.0); WHITE BLOOD COUNT 10.7 10^3/uL (4.0-10.5)
[2019-10-09] MEDS: DOCUSATE SODIUM 100 MG CAPSULE PO SCH ×2 (09:10→17:44)
[2019-10-09] MEDS: PRENATAL VITAMIN W DHA CAPSULE PO SCH (09:10)
[2019-10-09] MEDS: FERROUS SULFATE 325 MG TABLET PO SCH ×2 (09:11→17:44)
[2019-10-09] MEDS: SENNOSIDES/DOCUSATE 8.6-50 MG 1 EACH TABLET PO SCH (10:19)
--- NOTE | 2019-10-09 10:36 | PDOC PROGRESS REPORT ---
Subjective-OB Progress Note for:: 10/09/19 Subjective: reports bleeding slowing, pain controlled with current meds. denies needs Physical Exam (OB) Vital Signs: Temp Pulse Resp BP Pulse Ox 97.7 F 73 18 102/59 L 100 10/09/19 07:41 10/09/19 07:41 10/09/19 07:41 10/09/19 07:41 10/09/19 07:41 Intake & Output 10/08/19 10/09/19 10/10/19 06:59 06:59 06:59 Intake Total 640 300 Balance 640 300 Weight 95.5 kg - Abdomen Description: Round Hernia Present: No Fundal Description: Firm Fundal Height: u/u - u/2 - Abdominal Distension: No distension Tenderness: Nontender - Extremities Lower extremities: Agata's sign - neg Calf: Normal, Nontender Objective-Diagnostic Laboratory: 10/09/19 08:48 10/09/19 08:48 WBC 10.7 H RBC 3.52 L Hgb 9.6 L Hct 28.9 L MCV 82 MCH 27.2 MCHC 33.1 RDW 15.5 H Plt Count 190 Assessment and Plan(PN) - Time Spent with Patient Time with patient: Less than 15 minutes - Disposition Anticipated Discharge: Home Within: within 24 hours
[2019-10-09] MEDS: FAMOTIDINE 20 MG TABLET PO SCH ×2 (11:39→22:25)
[2019-10-10] MEDS: ACETAMINOPHEN WITH CODEINE #3 TABLET PO PRN ×2 (05:09→09:38)
[2019-10-10] MEDS: IBUPROFEN 800 MG TABLET PO SCH (05:09)
[2019-10-10] MEDS: PRENATAL VITAMIN W DHA CAPSULE PO SCH (09:37)
[2019-10-10] MEDS: SENNOSIDES/DOCUSATE 8.6-50 MG 1 EACH TABLET PO SCH (09:37)
[2019-10-10] MEDS: DOCUSATE SODIUM 100 MG CAPSULE PO SCH (09:37)
[2019-10-10] MEDS: FERROUS SULFATE 325 MG TABLET PO SCH (09:38)
[2019-10-10] MEDS: FAMOTIDINE 20 MG TABLET PO SCH (09:42)
[2019-10-10 11:20] VITALS: BP 106/50
== END 2019-10-10 13:23 | disposition home or self-care (01) | DRG 807 ==
LOC: LC 17:13 → LR 17:55 → 2S 10-08 15:00
PROVIDERS: ADMIT Obstetrics & Gynecology; ATTEND Obstetrics & Gynecology
PROC: 10E0XZZ Delivery of Products of Conception, External Approach (ICD-10-PCS; principal; 2019-10-08)
DX: O99.824 Streptococcus B carrier state complicating childbirth (principal); Z37.0 Single live birth; O75.89 Other specified complications of labor and delivery; O76 Abnormality in fetal heart rate and rhythm complicating labor and delivery; Z3A.40 40 weeks gestation of pregnancy
CPT/HCPCS: 36415; 80307; 81005; 85027; 86592; 86850; 86900; 86901; 94760; J2405; J2540; J2590; J3010; J3490; J7060